=== PATIENT | female | born 1965 | race Caucasian/White ===

== ENCOUNTER 2024-03-13 17:32 | Emergency (ER) | payer SELFPAY ==
[~2024-03-13 17:32] MED LIST: Iopamidol 370 76% 100 ML VIAL ONE
[2024-03-13 18:25] LABS: #Basophils 0.02 10x3/uL (0.0-0.2); #Eosinophils 0.05 10x3/uL (0.0-0.5); #Monocytes 1.17 10x3/uL (0.0-1.1); #Neutrophils 6.44 10x3/uL (1.5-8.4); %Basophils 0.2 % (0.0-2.0); %Eosinophils 0.5 % (0.0-6.0); %Lymphocytes 18.9 % (18.0-47.0); %Monocytes 12.3 % (0.0-10.0); %Neutrophils 67.9 % (40.0-75.0); Hematocrit 28.7 % (34.9-44.5); Hemoglobin 9.7 g/dL (12.0-15.5); Mean Corpuscular HGB CONC 33.8 g/dL (32.0-36.0); Mean Corpuscular Hemoglobin 38.6 pg (27.0-33.0); Mean Corpuscular Volume 114.3 fL (81.6-98.3); Mean Platelet Volume 10.3 fL (7.4-10.4); Platelet Count 118 10x3/uL (150-450); RBC Distribution Width 15.4 % (11.5-14.5); Red Blood Cell (RBC) Count 2.51 10x6/uL (3.90-5.03); White Blood Cell (WBC) Count 9.5 10x3/uL (3.5-10.5)
[2024-03-13 18:32] LABS: Anion Gap 14 mmol/L (10-20); BUN (Urea Nitrogen) 18 mg/dL (9.8-20.1); Calc. Creatinine Clearance 0 mL/min (70-130); Carbon Dioxide 25 mmol/L (22-29); Chloride 105 mmol/L (98-107); Estimated GFR 63; Glucose 135 mg/dL (70-105); Sodium 140 mmol/L (136-145)
[2024-03-13 18:38] LABS: Troponin I Less than 0.010 ng/mL (< 0.028)
[2024-03-13] MEDS ORDERED: Morphine 4 MG/ML VIAL ONE (19:29)
[2024-03-13 20:49] LABS: Troponin I Less than 0.010 ng/mL (< 0.028)
[2024-03-13] MEDS ORDERED: HYDROmorphone 0.5 MG/0.5 ML SYRINGE ONE ×2 (20:53→22:03)
== END 2024-03-14 00:18 | disposition left against medical advice (07) ==
LOC: CSHERS 17:32
DX: I25.10 Atherosclerotic heart disease of native coronary artery without angina pectoris (principal); R07.89 Other chest pain; I10 Essential (primary) hypertension; E78.00 Pure hypercholesterolemia, unspecified; Z86.73 Personal history of transient ischemic attack (TIA), and cerebral infarction without residual deficits; Z79.899 Other long term (current) drug therapy
CPT/HCPCS: 71045; 71275; 80048; 83880; 84484; 85025; 93005; 96374; 96375; 96376; J1171; J2272; Q9967